=== PATIENT | female | born 1985 | race Two or more races ===

== ENCOUNTER → 2021-08-15 | Emergency (ER) | payer OTHER ==
[~2021-08-15] VITALS: Ht 154.9 cm; Wt 74.8 kg
== END | disposition home or self-care (01) ==
LOC: ER 22:06
DX: S60.444A External constriction of right ring finger, initial encounter (principal); S63.695A Other sprain of left ring finger, initial encounter; X58.XXXA Exposure to other specified factors, initial encounter; Y93.89 Activity, other specified; Y92.018 Other place in single-family (private) house as the place of occurrence of the external cause